=== PATIENT | female | born 2000 | race Two or more races ===

== ENCOUNTER → 2024-01-24 | Outpatient (CLI) | payer MEDICAID, SELFPAY ==
--- NOTE | 2024-01-24 14:18 | XR_ITS ---
EXAMINATION: Ankle, right 3 views . Technique: Ankle AP, oblique, lateral 3 views Date and time of exam: January 24, 2024 1525 hours INDICATIONS: Ankle fracture October 17, 2023 FINDINGS: Partial healing fracture distal fibular shaft Partial healing fracture medial malleolus with stable and satisfactory alignment IMPRESSION: Partial healing fractures fibular shaft and medial malleolus with stable and satisfactory alignment
== END | disposition home or self-care (01) ==
LOC: CDIM 13:48
PROVIDERS: PCP Family Medicine; Referring Provider Orthopaedic Surgery; Visit Provider Orthopaedic Surgery
DX: M84.471A Pathological fracture, right ankle, initial encounter for fracture (principal)
CPT/HCPCS: 73610